=== PATIENT | female | born 1955 | race Caucasian/White ===

== ENCOUNTER 2018-03-20 09:36 | Day surgery (SDC) | payer MEDICARE, OTHER ==
[~2018-03-20 09:36] MED LIST: Lactated Ringers 1,000 ML IV SCH
[2018-03-20] MEDS ORDERED: Propofol 200 MG/20 ML SDV IV ONE (11:20)
--- NOTE | 2018-03-20 12:00 | PCM.OPNOTE ---
- General Post-Op/Procedure Note Date of Surgery/Procedure: 03/20/18 Operative Procedure(s): c scope with biopsy Findings: normal colon Pre Op Diagnosis: diarrhea Post-Op Diagnosis: nl scope Anesthesia Technique: MAC Primary Surgeon: Angelo Orellana Anesthesia Provider: Eugene Ann Pathology: random colon bx Complications: None Condition: Good Free Text/Narrative:: see dictation
--- NOTE | 2018-03-20 16:57 | OR ---
DATE OF OPERATION: 03/20/2018 SURGEON: Angelo Orellana MD PROCEDURE PERFORMED: Colonoscopy. PREOPERATIVE DIAGNOSIS: Personal history of diarrhea. POSTOPERATIVE DIAGNOSIS: Grossly normal scope. INDICATIONS FOR PROCEDURE: This 63-year-old white female referred with the above-mentioned complaints. She was offered and accepted colonoscopy. DESCRIPTION OF OPERATION: After an excellent IV sedation was administered, digital rectal exam was performed. No marked abnormality was noted. Flexible colonoscope was inserted and advanced to the cecum without difficulty. Prep was excellent. The following findings were noted: Ascending colon, unremarkable. Transverse colon, unremarkable. Descending colon, unremarkable. Sigmoid and rectum, unremarkable. Given her diagnosis or her chief complaint of diarrhea, random biopsies were taken of all major areas of the colon to effectively rule out any other etiology of her disease. Results by letter. /[id number] /CAROLL
== END 2018-03-20 12:50 | disposition home or self-care (01) ==
LOC: FB.SDS 09:36
PROVIDERS: ATTEND Surgery
DX: K52.832 Lymphocytic colitis (principal); F17.210 Nicotine dependence, cigarettes, uncomplicated; Z79.899 Other long term (current) drug therapy; Z88.1 Allergy status to other antibiotic agents
CPT/HCPCS: 00811-QZ; 88305; 88342; J2704; J7120

== ENCOUNTER 2019-06-23 08:38 | Day surgery (SDC) | payer MEDICARE, OTHER ==
[~2019-06-23 08:38] MED LIST changes: +Sodium Chloride 0.9% 10 ML Syringe FLUSH PRN
[2019-06-23] MEDS ORDERED: Propofol 200 MG/20 ML SDV IV ONE (08:39)
[2019-06-23] MEDS ORDERED: Lidocaine 2% 5 ML SDV INJECT ONE (08:39)
--- NOTE | 2019-06-23 11:19 | PCM.OPNOTE ---
- General Post-Op/Procedure Note Date of Surgery/Procedure: 06/23/19 Operative Procedure(s): egd with bx Findings: gastritis esophagitis Pre Op Diagnosis: epigastric abd pain Post-Op Diagnosis: gastritis. esophagitis Anesthesia Technique: MAC Primary Surgeon: Angelo Orellana Anesthesia Provider: Fredrick Serna Pathology: stomach and duodenum Complications: None Condition: Good Free Text/Narrative:: see dictation
--- NOTE | 2019-06-23 17:23 | OR ---
DATE OF OPERATION: 06/23/2019 SURGEON: Angelo Orellana MD PROCEDURE PERFORMED: Esophagogastroduodenoscopy with cold forceps biopsy. PREOPERATIVE DIAGNOSIS: Epigastric abdominal pain. POSTOPERATIVE DIAGNOSIS: Esophagitis and gastritis. INDICATIONS FOR PROCEDURE: This is a 64-year-old white female who has a history of some epigastric abdominal pain. She was offered and accepted an EGD as part of her workup. DESCRIPTION OF PROCEDURE: After an excellent IV sedation was administered, the bite block was inserted. The flexible endoscope was passed without difficulty down the patient's esophagus into the stomach. The stomach was insufflated. Scope passed through the pylorus, second portion of the duodenum and slowly withdrawn. The following findings were noted: In the stomach, especially in the main body of the stomach, irritation and friable mucosa was noted. This was biopsied and sent for permanent. GE junction was approximately 40 cm, and there were some mild esophagitis noted just distal to this. Biopsies were taken of this as well and submitted in a separate container. Remainder of the esophageal exam was unremarkable. The stomach was deflated. Scope was removed. Patient tolerated the procedure well, was taken to recovery. /[id number] /MODL
== END 2019-06-23 11:50 | disposition home or self-care (01) ==
LOC: FB.SDS 08:38
PROVIDERS: ATTEND Surgery
DX: K20.9 Esophagitis, unspecified (principal); K29.50 Unspecified chronic gastritis without bleeding; Z79.899 Other long term (current) drug therapy; Z88.1 Allergy status to other antibiotic agents
CPT/HCPCS: 00731; 43239; J2001; J2704; J7120; 88305; 88313; 88342